=== PATIENT | male | born 1985 | race Caucasian/White ===

== ENCOUNTER 2022-09-19 21:18 | Emergency (ER) | payer MEDICAID ==
[~2022-09-19] VITALS: Ht 177.8 cm; Wt 93.0 kg
[2022-09-19 22:12] VITALS: TEMP 98.7
--- NOTE | 2022-09-19 22:20 | NUR ---
Thai AOx4, able to express his concerns. C/o: right lower quadrant abdominal pain, and constipation. Nisagildardo states LBM was September 16, 2022. Discussed plan of care, pt verbalized agreement. All safety precautions followed.
[2022-09-19 23:28] LABS: BASOPHILS % (AUTO) 0.6 % (0.0-2.0); EOSINOPHILS % (AUTO) 1.8 % (0.0-6.0); HEMATOCRIT 40 % (39-51); HEMOGLOBIN 13.7 g/dL (13.5-17.5); LYMPHOCYTES # (AUTO) 2.2 K/uL (0.8-4.8); LYMPHOCYTES % (AUTO) 38.5 % (20.0-44.0); MEAN CORPUSCULAR HGB CONC 34 g/dl (31.0-36.0); MEAN CORPUSCULAR VOLUME 80 fL (80-96); MONOCYTES # (AUTO) 0.7 K/uL (0.1-1.30); MONOCYTES % (AUTO) 12.4 % (2.0-12.0); NEUTROPHILS # (AUTO) 2.6 K/uL (1.8-8.9); NEUTROPHILS % (AUTO) 46.7 % (43.0-81.0); PLATELET COUNT (AUTO) 208 K/uL (150-450); RED BLOOD CELL COUNT(AUTO) 5.07 MIL/uL (4.5-6.0); WHITE BLOOD COUNT (AUTO) 5.6 K/uL (4.3-11.0)
--- NOTE | 2022-09-19 23:38 | NUR ---
Urine collected, sent to lab
[2022-09-19 23:45] LABS: ALBUMIN 3.5 g/dL (3.4-5.0); BILIRUBIN,DIRECT 0.1 mg/dL (0.0-0.2); BILIRUBIN,TOTAL 0.3 mg/dL (0.2-1.0); CALCIUM, SERUM 9.4 mg/dL (8.5-10.1); CREATININE 1.1 mg/dL (0.6-1.3); POTASSIUM 3.6 mmol/L (3.5-5.1)
[2022-09-19 23:52] LABS: BILIRUBIN,URINE NEGATIVE (NEGATIVE); COLOR,URINE YELLOW (YELLOW); LEUKOCYTE ESTERASE ,URINE NEGATIVE (NEGATIVE); NITRITE, URINE NEGATIVE (NEGATIVE); PROTEIN,URINE NEGATIVE (NEGATIVE); UGLUCOSE NEGATIVE (NEGATIVE); UROBILINOGEN,URINE 0.2 EU/dL (0.2)
--- NOTE | 2022-09-20 00:14 | NUR ---
AT BED SIDE
[2022-09-20] MEDS ORDERED: POLY17PO4 PO (00:22)
[2022-09-20] MEDS ORDERED: DOCU-141 PO (00:22)
[2022-09-20 01:07] VITALS: BP 120/78
== END 2022-09-20 01:07 | disposition home or self-care (01) ==
LOC: ER 21:23
DX: K40.20 Bilateral inguinal hernia, without obstruction or gangrene, not specified as recurrent (principal); K59.00 Constipation, unspecified; R78.5 Finding of other psychotropic drug in blood
CPT/HCPCS: 36415; 80048-TC; 80076-TC; 83690-TC; 85025-TC

== ENCOUNTER 2024-09-21 19:24 | Emergency (ER) | payer MEDICAID ==
[~2024-09-21] VITALS: Ht 180.3 cm; Wt 90.7 kg
[~2024-09-21 19:24] MED LIST: DOCU-141 PO; POLY17PO4 PO
[2024-09-21 19:46] VITALS: BP 135/78; TEMP 97.7; O2SAT 96
[2024-09-21] MEDS ORDERED: CEPH-570 PO (20:24)
== END 2024-09-21 20:30 | disposition home or self-care (01) ==
LOC: ER 19:27
DX: L03.032 Cellulitis of left toe (principal); E78.5 Hyperlipidemia, unspecified; K40.90 Unilateral inguinal hernia, without obstruction or gangrene, not specified as recurrent; Z79.899 Other long term (current) drug therapy